=== PATIENT | female | born 1975 | race Caucasian/White ===

== ENCOUNTER 2018-08-25 19:00 | Emergency (ER) | payer OTHER ==
[2018-08-25] MEDS: predniSONE 20 MG TAB PO (20:35)
[2018-08-25] MEDS: ALBUTEROL 0.083% (NEB) 2.5 MG/3 ML AMP NEB (20:48)
[2018-08-25] MEDS: IPRATROPIUM (NEB) 0.5 MG/2.5 ML AMP NEB (20:48)
== END 2018-08-25 22:45 | disposition home or self-care (01) ==
LOC: FTE 19:00
DX: J45.901 Unspecified asthma with (acute) exacerbation (principal)
CPT/HCPCS: 71046; 94664; 99283-25